=== PATIENT | male | born 1950 | race Caucasian/White ===

== ENCOUNTER 2017-05-22 10:50 | Emergency (ER) | payer OTHER ==
--- NOTE | 2017-05-22 10:54 | EDPHY ---
H & P HPI/ROS: HPI CHIEF COMPLAINT: Left leg hematoma HISTORY OF PRESENT ILLNESS: Patient very pleasant 66-year-old male, otherwise healthy he does have significant past medical history for factor 5 Leiden deficiency on Coumadin he reports to me that his INR is always 2.5-2.7. Very stable. Presents to the emergency room with ecchymosis to the bottom of his left foot. Patient reports 9 days ago he hit his left proximal anterior tibial spine on the edge of a boat. He states he had a rather large left anterior tibial spine hematoma. This went down time. Now has a yellow discoloration. He tells me his swelling has greatly improved. Has no significant pain specifically has no pain when he walks. This morning woke up and noticed the bottom of his left foot was purple ecchymotic. He is unsure exactly how long it has been there has not noticed stated may have been there for few days. He has no pain. Past Medical History: Factor 5 Leiden deficiency Past Surgical History: Hemorrhoidectomy Social History: No drugs alcohol tobacco products. Family History: Noncontributory ROS REVIEW OF SYSTEMS: A comprehensive 10 point review of systems is otherwise negative aside from elements mentioned in the history of present illness. Exam Constitutional triage nursing summary reviewed, vital signs reviewed, awake/ alert. Eyes normal conjunctivae and sclera, EOMI, PERRLA. HENT normal inspection, atraumatic, moist mucus membranes, no epistaxis, neck supple/ no meningismus, no raccoon eyes. Respiratory clear to auscultation bilaterally, normal breath sounds, no respiratory distress, no wheezing. Cardiovascular rate normal, regular rhythm, no murmur, no edema, distal pulses normal. Gastrointestinal soft, non-tender, no rebound, no guarding, normal bowel sounds, no distension, no pulsatile mass. Genitourinary no CVA tenderness. Musculoskeletal no midline vertebral tenderness, full range of motion, no calf swelling, no tenderness of extremities, no meningismus, good pulses, neurovascularly intact. Skin left lower extremity: Proximal aspect of the left anterior tibia there is some yellow discoloration very small amount of hematoma present, no significant tenderness, his left leg is neurovascular intact. Warm extremity. Good distal pulse. No signs of compartment syndrome. Compartments soft. Around the bottom of his heel on the left foot, there is ecchymosis present. Purple discoloration. No significant swelling. Full range of motion of the left foot. Good DP. Warm extremity. Good cap refill. This appears to be dependent ecchymosis. pink, warm, & dry, no rash Neurologic awake, alert and oriented x 3, AAOx3, moves all 4 extremities equally, motor intact, sensory intact, CN II-XII intact, normal cerebellar, normal vision, normal speech. Psychiatric normal mood/affect. Heme/Lymph/Immune no lymphadenopathy. Differential Diagnosis: Includes but is not limited to in a particular order: Left tibia hematoma, left tibial contusion, dependent ecchymosis from the previous higher up hematoma and bruise. Tibia fracture. Small tibia fracture. Bone contusion. Medical Decision Making: Plan for this patient I did offer to x-ray his left tibia however he does not have any significant pain in this declined imaging. Additionally I also offered him to do a blood draw for his Coumadin level however he tells me that his Coumadin level is always very stable INR 2.5-2.7. He has declined blood draw. He has no significant pain. His exam is consistent with dependent ecchymosis from his recent proximal tibia hematoma that is now settled into the bottom of his foot. Recommend elevation. He can ice his leg if need be. However he does have significant pain and he has been walking fine. I do recommend that he would looks his leg every day make sure this is improving his leg gets more swollen more painful or gets a fever he needs return emergency room for evaluation he understands. Source: Patient - Medical/Surgical History Other PMH: FACTOR V LEIDEN, DVT, PE, ON COUMADIN FOR LIFE. TONSILECTOMY. WRIST FX/OR. HEMORHOIDECTOMY - Social History Smoking Status: Never smoked Constitutional: Initial Vital Signs Temperature (C) 36.6 C 05/22/17 11:04 Heart Rate 63 05/22/17 11:04 Respiratory Rate 18 05/22/17 11:04 Blood Pressure 130/85 H 05/22/17 11:04 O2 Sat (%) 95 05/22/17 11:04 O2 Delivery Mode Room Air Allergies/Adverse Reactions: No Known Allergies Allergy (Verified 07/23/16 12:12) Home Medications: Medication Instructions Recorded Warfarin Sodium [Coumadin] 5 mg PO DAILY16 07/22/11 Amoxicillin 500 mg PO TID 10 Days cap 07/23/16 Departure - Departure Disposition: Home, Routine, Self-Care Clinical Impression: Leg hematoma Qualifiers: Encounter type: initial encounter Laterality: right Qualified Code(s): S80.11XA - Contusion of right lower leg, initial encounter Condition: Good Instructions: Hematoma (ED), Contusion in Adults (ED) Additional Instructions: 1. Watch your leg closely. If you develop worsening pain, swelling, bruising return to the emergency room. Referrals: Nelida Orellana MD [Primary Care Provider] - As per Instructions
[2017-05-22 11:19] VITALS: BP 130/85; PULSE 63; RESP 18; TEMP 98; O2SAT 95
== END 2017-05-22 11:22 | disposition home or self-care (01) ==
LOC: CED 10:50
DX: S80.11XA Contusion of right lower leg, initial encounter (principal); Z79.01 Long term (current) use of anticoagulants; W22.8XXA Striking against or struck by other objects, initial encounter

== ENCOUNTER → 2017-07-11 | Outpatient (CLI) | payer OTHER | LOC: FIMAGING 15:40 | PROVIDERS: ATTEND Family Medicine | DX: R05 Cough (principal) ==